=== PATIENT | female | born 1960 | race Caucasian/White ===

== ENCOUNTER 2019-06-05 17:41 | Emergency (ER) | payer OTHER ==
[~2019-06-05] VITALS: Ht 167.6 cm; Wt 72.6 kg
--- OUTSIDE RECORDS SUMMARY | 2019-06-05 17:43 | XMS REPORT ---
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 Allergies, Adverse Reactions, Alerts This patient has no known allergies or adverse reactions. Medications This patient has no known medications. Results Test Description Test Time Test Comments Text Results Atomic Results Result Comments MRI SPINE LUMBAR WO [place] [address] Patient Name: NIKKY VELASCO MR #: [id number] : 1960 Age/Sex: 56/F Req #: [id number] Adm Physician: Ordered by: ARIA AMIN MD Report #: [id number] Location: MRI Room/Bed: Procedure: [id number] MRI/MRI SPINE LUMBAR WO Exam Date: 12/28/16 Exam Time: 1315 REPORT STATUS: Signed History: Back pain radiating to the to the right hip after heavy lifting. Comparison studies: None Technique: Sagittal, coronal and axial T2 , sagittal T1 and IR, axial spin density oblique. Intravenous contrast: None Findings: Number of lumbar vertebral bodies:5 Alignment: Normal lordosis.No scoliosis. Soft tissues: No T2 hyperintense inflammatory changes. Centimeters cyst is seen in the right kidney lower pole. Paraspinal muscles: No signal abnormalities. No atrophy. Lower thoracic cord:Normal in signal and morphology. The tip of the conus is at T12-L1. Cauda equina: No masses. No arachnoiditis. Vertebrae: Normal in height and signal intensity. No compression fractures, infection or neoplasm. Degenerative changes: L1-L2: No abnormalities. L2-L3: No abnormalities. L3-L4: Left extraforaminal annular fissure with patent canal and foramina. L4-L5: Mild disc degeneration with loss of T2 signal. Mild diffuse disc bulge, severe right and moderate left facet hypertrophy results in mild canal stenosis, moderate right and mild left foraminal narrowing. Fluid intensity signal in the right facet joint with edema signal in the facet processes and periarticular soft tissues. L5-S1: Disc degeneration with loss of T2 signal. Mild diffuse disc bulge, moderate right and mild left foraminal narrowing results in no significant canal stenosis and mild bilateral foraminal narrowing. Trace of fluid is seen in the right facet joint with mild periarticular inflammation Additional findings: None IMPRESSION: Moderate right foraminal narrowing at L4-L5 secondary to degenerative changes. Moderate to severe facet hypertrophy at L4-L5 and L5-S1 on the right side with synovitis changes and periarticular inflammation. Other mild degenerative changes as described above. Signed by: DR Chemo Conley M.D. on 12/28/2016 3:10 PM Dictated By: CHEMO HAYS MD [id number] Transcribed By: GELY on 12/28/16 1510 COPY TO: ARIA AMIN MD
[2019-06-05] MEDS ORDERED: MORPHINE SULFATE INJ 4 MG/ML INJ 1ML IM STA (17:53)
--- NOTE | 2019-06-05 18:48 | Diagnostic Imaging Report ---
SHOULDER RIGHT COMPLETE - Multiple views HISTORY: ^Right shoulder pain ^[id number] ^[id number] COMPARISON: None available. FINDINGS: Bones: No acute displaced fracture. Osseous alignment is within normal limits. Joints: There is moderate joint space narrowing and bone production compatible with osteoarthritis. Soft tissues: The soft tissues appear unremarkable. IMPRESSION: Moderate right shoulder joint osteoarthritis. No acute finding. Signed by: Alverto Argueta MD on 06/05/2019 6:45 PM
== END 2019-06-05 19:45 | disposition home or self-care (01) ==
LOC: ER 17:41
DX: M25.511 Pain in right shoulder (principal); W01.0XXA Fall on same level from slipping, tripping and stumbling without subsequent striking against object, initial encounter; Y93.01 Activity, walking, marching and hiking; Y92.008 Other place in unspecified non-institutional (private) residence as the place of occurrence of the external cause; I10 Essential (primary) hypertension; E11.9 Type 2 diabetes mellitus without complications; E78.5 Hyperlipidemia, unspecified
CPT/HCPCS: 73030; 99283; J2270